=== PATIENT | male | born 1950 | race Caucasian/White ===

== ENCOUNTER → 2017-01-16 | Outpatient (CLI) | payer OTHER, BC ==
[~2017-01-16] MED LIST: ASPI81TA28 PO; ATEN25TA PO; CALC500C70 PO; GABA400C PO; OXYC5TAB PO; ROSU20TA PO; TIZA4CAP PO
[2017-01-16 18:41] LABS: BLOOD UREA NITROGEN 33 mg/dl (7-18); BUN/CREATININE RATIO 27.3 (10-20); CALCIUM 9.2 mg/dl (8.5-10.1); CARBON DIOXIDE 25 mmol/L (21-32); CHLORIDE 105 mmol/L (98-107); CHOLESTEROL 157 mg/dl (0-200); GLUCOSE 105 mg/dl (70-99); POTASSIUM 4.5 mmol/L (3.5-5.1); SODIUM 139 mmol/L (136-145)
[2017-01-16 18:51] LABS: CHOLESTEROL/HDL RATIO 3.9; HDL CHOLESTEROL 40 mg/dl; TRIGLYCERIDES 120 mg/dl (0-150); VERY LOW DENSITY LIPOPROT CALC 24 mg/dl
== END | disposition home or self-care (01) ==
LOC: C.LABMFLN 14:32
PROVIDERS: ATTEND Family Medicine
DX: E78.5 Hyperlipidemia, unspecified (principal); I10 Essential (primary) hypertension

== ENCOUNTER → 2017-07-10 | Outpatient (CLI) | payer BC, OTHER ==
[2017-07-10 18:47] LABS: ALT/SGPT 20 U/L (12-78); BLOOD UREA NITROGEN 23 mg/dl (7-18); CALCIUM 8.6 mg/dl (8.5-10.1); CARBON DIOXIDE 25 mmol/L (21-32); CHLORIDE 106 mmol/L (98-107); CHOLESTEROL 111 mg/dl (0-200); GLUCOSE 108 mg/dl (70-99); POTASSIUM 3.9 mmol/L (3.5-5.1); SODIUM 137 mmol/L (136-145); TRIGLYCERIDES 75 mg/dl (0-150); VERY LOW DENSITY LIPOPROT CALC 15 mg/dl
[2017-07-10 18:51] LABS: CHOLESTEROL/HDL RATIO 2.8; HDL CHOLESTEROL 40 mg/dl
== END | disposition home or self-care (01) ==
LOC: C.LABMFLN 13:51
PROVIDERS: ATTEND Family Medicine
DX: E78.5 Hyperlipidemia, unspecified (principal)